=== PATIENT | female | born 1950 | race African-American/Black ===

== ENCOUNTER 2016-06-22 18:11 | Emergency (ER) | payer BC ==
[~2016-06-22 18:11] MED LIST: ALLEGRA180 PO; ALTA2.5 PO; AMITIZA24 PO; ASA5GR PO; ASABAYER PO; BENTYL20 PO; CLARIT10 PO; COREG12 PO; COREG6 PO; COREGCR20 PO; FISH OIL1200 MG PO; FISH-EPA1000 MG PO; FLONASE NAS; GAS-X80 MG PO; LIPITOR20 PO; LIPITOR40; LIPITOR40 PO; MAX25 PO; MCZ25 PO; NEUR100; NEXIUM20 M1 PO; NEXIUM40 PO; NORCO1 TA2 PO; PLAVIX PO; PREV30 PO; RANEXA1000 MG PO; TUMSROLL PO; VISINE0.05 % OPH; VITAMIN B-6 PO; VITAMIN D1000 UNI1 PO; VITAMIN D400 UNI1 PO; VITAMIN E PO; WELLSR150 PO; WELLXL150 PO; WELLXL300 PO; ZOFRAN8 PO
[2016-06-22 19:54] LABS: INFLUENZA A SCREEN NEGATIVE (NEGATIVE); INFLUENZA B SCREEN NEGATIVE (NEGATIVE)
[2016-10-11] MEDS ORDERED: MAX25 PO (17:05)
[2016-10-11] MEDS ORDERED: LIPITOR40 PO (17:05)
[2016-10-11] MEDS ORDERED: RANEXA1000 MG PO (17:06)
[2016-10-11] MEDS ORDERED: COREG6 PO (17:06)
[2016-10-11] MEDS ORDERED: WELLXL300 PO (17:06)
[2016-10-11] MEDS ORDERED: ALTA2.5 PO (17:06)
[2016-10-11] MEDS ORDERED: ASABAYER PO (17:07)
[2016-10-11] MEDS ORDERED: NEXIUM20 M1 PO (17:07)
[2016-10-11] MEDS ORDERED: ACET500CAP PO (17:09)
[2016-10-11] MEDS ORDERED: TUMSROLL PO (17:12)
== END 2016-06-22 21:12 | disposition home or self-care (01) ==
LOC: ER 18:11
PROVIDERS: Emergency Medicine
DX: J06.9 Acute upper respiratory infection, unspecified (principal); I10 Essential (primary) hypertension; Z98.61 Coronary angioplasty status; Z95.1 Presence of aortocoronary bypass graft; K21.9 Gastro-esophageal reflux disease without esophagitis; F32.9 Major depressive disorder, single episode, unspecified; Z88.2 Allergy status to sulfonamides; Z79.82 Long term (current) use of aspirin
CPT/HCPCS: 71020; 87804; 99284